=== PATIENT | female | born 1985 | race Caucasian/White ===

== ENCOUNTER 2016-12-21 03:06 | Emergency (ER) | payer SELFPAY ==
[~2016-12-21] VITALS: Ht 162.6 cm; Wt 61.4 kg
[2016-12-21 04:45] VITALS: BP 133/85
== END 2016-12-21 05:25 | disposition left against medical advice (07) ==
LOC: EMS 03:08
DX: H92.03 Otalgia, bilateral (principal); R51 Headache; Z53.21 Procedure and treatment not carried out due to patient leaving prior to being seen by health care provider